=== PATIENT | female | born 1995 | race Caucasian/White ===

== ENCOUNTER 2017-05-20 19:06 | Emergency (ER) | payer SELFPAY ==
[~2017-05-20] VITALS: Ht 157.5 cm; Wt 60.0 kg
[~2017-05-20 19:06] MED LIST: FLUO20CA33 PO
[2017-05-20] MEDS ORDERED: KETOROLAC 30MG/ML VIAL IM ONE (20:00)
[2017-05-20 22:30] VITALS: BP 117/74
== END 2017-05-20 23:21 | disposition home or self-care (01) ==
LOC: ER 19:16
DX: M54.2 Cervicalgia (principal); R51 Headache; S70.12XA Contusion of left thigh, initial encounter; V49.59XA Passenger injured in collision with other motor vehicles in traffic accident, initial encounter; Y93.89 Activity, other specified; Y92.488 Other paved roadways as the place of occurrence of the external cause; Z86.59 Personal history of other mental and behavioral disorders
CPT/HCPCS: 70450; 72125; 81025; 96372; 99284; J1885; Z7610

== ENCOUNTER 2017-09-19 19:49 | Emergency (ER) | payer SELFPAY ==
[~2017-09-19] VITALS: Ht 157.5 cm; Wt 57.0 kg
[2017-09-19] MEDS ORDERED: ACETAMINOPHEN 325MG TABLET PO STA (21:17)
[2017-09-19 21:34] LABS: CLARITY URINE CLEAR (CLEAR); COLOR URINE YELLOW (YELLOW); KETONES URINE NEGATIVE (NEGATIVE); LEUKOCYTE ESTERASE URINE NEGATIVE (NEGATIVE); NITRITE URINE NEGATIVE (NEGATIVE); OCCULT BLOOD URINE 2+ (NEGATIVE); PROTEIN URINE NEGATIVE (NEGATIVE); SPECIFIC GRAVITY URINE 1.016 (1.005-1.030); UROBILINOGEN URINE 0.2 E.U./dL (0.2-1.0)
[2017-09-19 21:45] LABS: BASOPHILS % 0.8 % (0.0-2.0); CHLORIDE 105 mEq/L (98-107); EOSINOPHILS % 2.5 % (0.0-5.0); HEMATOCRIT. 35.5 % (36.0-48.0); HEMOGLOBIN. 12.4 g/dL (12.0-16.0); MEAN CORPUSCULAR HEMOGLOBIN 30.4 pg (28.0-32.0); MEAN CORPUSCULAR VOLUME 86.8 fL (81.0-99.0); MEAN PLATELET VOLUME 9.3 fl (7.4-10.4); MONOCYTES % 7.4 % (2.0-8.0); NEUTROPHILS % 49.3 % (40.0-76.0); PLATELET 147 x1000/uL (130-400); RED BLOOD CELL COUNT 4.09 mill/uL (4.2-5.4); RED CELL DISTRIBUTION WIDTH 12.4 % (11.6-14.6)
[2017-09-19 22:07] LABS: B-HCG QUANTITATIVE 29971 mIU/mL (<3)
[2017-09-19 22:50] VITALS: BP 119/68
== END 2017-09-20 00:33 | disposition home or self-care (01) ==
LOC: ER 22:04
DX: O20.0 Threatened abortion (principal); Z3A.01 Less than 8 weeks gestation of pregnancy
CPT/HCPCS: 36415; 76801; 80053; 81003; 81025; 84702; 85025; 86900; 99285